=== PATIENT | female | born 1935 | race Caucasian/White ===

== ENCOUNTER 2017-01-20 17:22 | Inpatient (IN) | payer MEDICARE ==
[~2017-01-20] VITALS: Ht 147.3 cm; Wt 57.7 kg
[2017-01-20] VITALS (7 sets, daily range): BP systolic 133–171; BP diastolic 69–85; PULSE 101–127; RESP 18–24; TEMP 99.7–102.6; O2SAT 91–96
[2017-01-20] MEDS ORDERED: SODIUM CHLORID 0.9% 500 ML INJ 500 ML IV ONE ×2 (17:45→19:00)
[2017-01-20] MEDS ORDERED: ONDANSETRON HCL 4 MG/2 ML VIAL IV PUSH ONE (17:45)
[2017-01-20] MEDS ORDERED: ACETAMINOPHEN 325 MG TAB PO ONE (17:45)
--- NOTE | 2017-01-20 17:58 | PD ---
HPI Chief Complaint: Cold / Flu Symptoms Time Seen by Provider: 17:32 Travel History International Travel<30 days: No Contact w/Intl Traveler<30days: No Traveled to known affect area: No History of Present Illness HPI 81 y/o female presents with fever that started again this morning and has been steadily increasing. She has not taken anything for the fever. She recently at the beginning of last month was provided a doxycycline prescription which she completed and was given an additional prescription if it started again and so she took one pill of her doxycycline prescription this morning. She also recently in the past was given Levaquin and azithromycin when she was diagnosed at a different urgent care with pneumonia. She states this was earlier in December. She is here with someone helps provide history. Other than cough she denies other specific complaints to me. Fever is high. Severity is 102. PFSH Past Medical History Arthritis: Yes Asthma: Yes GERD: Yes Respiratory: Yes (ASTHMA) Influenza Vaccination: Yes ?: Not Menopausal: Yes Past Surgical History Surgical History: No Previous Surgery Social History Alcohol Use: No Tobacco Use: No Substance Use: No Allergies-Medications (Allergen,Severity, Reaction): Coded Allergies: No Known Allergies (Unverified , 01/20/17) Review of Systems Except as stated in HPI: all other systems reviewed are Neg Physical Exam Exam Limitations: Other: (fever) Narrative GENERAL: Well-nourished, well-developed patient. SKIN: Warm and dry. HEAD: Normocephalic and atraumatic. EYES: No injection or drainage. ENT: No nasal drainage noted. NECK: Supple, trachea midline. no meningeal signs CARDIOVASCULAR: Regular rate and rhythm RESPIRATORY: Breath sounds equal bilaterally at apices. No accessory muscle use. GASTROINTESTINAL: Abdomen soft, non-tender, nondistended. NEUROLOGICAL: Awake and alert. moves all extremities. Normal speech. Data Data Last Documented VS Vital Signs Date Time Temp Pulse Resp B/P Pulse Ox O2 Delivery O2 Flow Rate FiO2 01/20/17 18:16 101.7 109 18 171/85 96 Room Air Orders Electrocardiogram (01/20/17 17:32) Complete Blood Count With Diff (01/20/17 17:32) Comprehensive Metabolic Panel (01/20/17 17:32) Prothrombin Time / Inr (Pt) (01/20/17 17:32) Act Partial Throm Time (Ptt) (01/20/17 17:32) Lactic Acid Sepsis Protocol (01/20/17 17:32) Magnesium (Mg) (01/20/17 17:32) Phosphorus (Po4) (01/20/17 17:32) Urinalysis - C+S If Indicated (01/20/17 17:32) Influenzae A/B Antigen (01/20/17 17:32) Blood Culture (01/20/17 17:32) Chest, Single Ap (01/20/17 17:32) Ecg Monitoring (01/20/17 17:32) Iv Access Insert/Monitor (01/20/17 17:32) Oximetry (01/20/17 17:32) Acetaminophen (Tylenol) (01/20/17 17:45) Ondansetron Inj (Zofran Inj) (01/20/17 17:45) Sodium Chlorid 0.9% 500 Ml Inj (Ns 500 M (01/20/17 17:45) Ckmb (Isoenzyme) Profile (01/20/17 17:59) Troponin I (01/20/17 17:59) Vancomycin Inj (Vancomycin Inj) (01/20/17 18:39) Piperacil-Tazo 4.5 Gm Premix (Zosyn 4.5 (01/20/17 18:39) Sodium Chlor 0.9% 1000 Ml Inj (Ns 1000 M (01/20/17 18:45) Cath For Specimen (01/20/17 18:42) Admit Order (Ed Use Only) (01/20/17 18:52) Labs Laboratory Tests Test 01/20/17 17:59 White Blood Count 8.3 TH/MM3 Red Blood Count 3.94 MIL/MM3 Hemoglobin 12.6 GM/DL Hematocrit 36.9 % Mean Corpuscular Volume 93.6 FL Mean Corpuscular Hemoglobin 31.9 PG Mean Corpuscular Hemoglobin 34.1 % Concent Red Cell Distribution Width 16.1 % Platelet Count 163 TH/MM3 Mean Platelet Volume 8.8 FL Neutrophils (%) (Auto) 87.4 % Lymphocytes (%) (Auto) 6.6 % Monocytes (%) (Auto) 5.2 % Eosinophils (%) (Auto) 0.1 % Basophils (%) (Auto) 0.7 % Neutrophils # (Auto) 7.3 TH/MM3 Lymphocytes # (Auto) 0.5 TH/MM3 Monocytes # (Auto) 0.4 TH/MM3 Eosinophils # (Auto) 0.0 TH/MM3 Basophils # (Auto) 0.1 TH/MM3 CBC Comment DIFF FINAL Differential Comment Prothrombin Time 11.1 SEC Prothromb Time International 1.0 RATIO Ratio Activated Partial 25.4 SEC Thromboplast Time Sodium Level 140 MEQ/L Potassium Level 3.7 MEQ/L Chloride Level 109 MEQ/L Carbon Dioxide Level 22.3 MEQ/L Anion Gap 9 MEQ/L Blood Urea Nitrogen 11 MG/DL Creatinine 0.80 MG/DL Estimat Glomerular Filtration 69 ML/MIN Rate Random Glucose 128 MG/DL Lactic Acid Level 3.0 mmol/L Calcium Level 8.1 MG/DL Phosphorus Level 1.7 MG/DL Magnesium Level 2.0 MG/DL Total Bilirubin 0.9 MG/DL Aspartate Amino Transf 43 U/L (AST/SGOT) Alanine Aminotransferase 47 U/L (ALT/SGPT) Alkaline Phosphatase 83 U/L Total Creatine Kinase 36 U/L Troponin I LESS THAN 0.02 NG/ML Total Protein 6.2 GM/DL Albumin 3.5 GM/DL MDM Medical Decision Making Medical Screen Exam Complete: Yes Emergency Medical Condition: Yes Medical Record Reviewed: Yes (pmh confirmed) Interpretation(s) CBC & BMP Diagram 01/20/17 17:59 Last 24 hours Impressions Chest X-Ray 01/20/17 3492 Signed Impressions: Service Date/Time: Friday, January 20, 2017 17:49 - CONCLUSION: No acute cardiopulmonary disease identified. Bony Lindo MD Differential Diagnosis uri, uti, pneumonia, sepsis.... Narrative Course will check labs, flu, cxr, ua and dose with tylenol, ivf and reeval ed workup with severe sepsis, given vancomycin and zosyn for broad coverage, given ivf, will admit, patient updated Sepsis Criteria SIRS Criteria (2 or more): Temp > 100.9 or < 96.8, Heart rate over 90 Sepsis Criteria (SIRS+source): Infect source susp/known Severe Sepsis (+one): Lactate >2 Criteria Outcome: Meets severe sepsis criteria Physician Communication Physician Communication dr ga agrees to admit on floor, full admit with tele Diagnosis Primary Impression: Sepsis Qualified Code: A41.9 - Sepsis, due to unspecified organism Admitting Information Admitting Physician Requests: Admit Melissa Hanna MD Jan 20, 2017 17:58
--- NOTE | 2017-01-20 18:09 | RADHPO ---
EXAM DATE/TIME: 01/20/2017 17:49 [place] COMPARISON: No previous studies available for comparison. INDICATIONS : Cough. MEDICAL HISTORY : None. SURGICAL HISTORY : None. ENCOUNTER: Initial ACUITY: 1 month PAIN SCORE: 3/10 LOCATION: Bilateral chest FINDINGS: Single AP view of the chest. The lungs are clear. Cardiomediastinal silhouette within normal limits. No evidence of pleural effusion or pneumothorax. CONCLUSION: No acute cardiopulmonary disease identified. Bony Lindo MD on January 20, 2017 at 18:07 Board Certified Radiologist. This report was verified electronically.
[2017-01-20 18:25] LABS: AUTOMATED NEUTROPHIL # 7.3 TH/MM3 (1.8-7.7); BASOPHIL # 0.1 TH/MM3 (0-0.2); BASOPHIL % 0.7 % (0.0-2.0); EOSINOPHIL % 0.1 % (0.0-4.0); HEMATOCRIT 36.9 % (35.0-46.0); LYMPH % 6.6 % (9.0-44.0); LYMPHOCYTE # 0.5 TH/MM3 (1.0-4.8); MEAN CELL VOLUME 93.6 FL (80.0-100.0); MEAN CORPUSCULAR HEMOGLOBIN 31.9 PG (27.0-34.0); MEAN CORPUSCULAR HGB CONC 34.1 % (32.0-36.0); MONO % 5.2 % (0.0-8.0); NEUT % 87.4 % (16.0-70.0); PLATELET COUNT 163 TH/MM3 (150-450); RED BLOOD COUNT 3.94 MIL/MM3 (4.00-5.30); RED CELL DISTRIBUTION WIDTH 16.1 % (11.6-17.2); WHITE BLOOD COUNT 8.3 TH/MM3 (4.0-11.0)
[2017-01-20 18:27] LABS: HEMO FLAGS DIFF FINAL
[2017-01-20 18:28] LABS: CHLORIDE 109 MEQ/L (98-107); POTASSIUM 3.7 MEQ/L (3.5-5.1); SODIUM (NA) 140 MEQ/L (136-145)
[2017-01-20 18:32] LABS: ANION GAP 9 MEQ/L (5-15); BICARBONATE 22.3 MEQ/L (21.0-32.0); BLOOD UREA NITROGEN 11 MG/DL (7-18)
[2017-01-20 18:34] LABS: APTT (PATIENT) 25.4 SEC (24.3-30.1); PROTHROMBIN TIME - PATIENT 11.1 SEC (9.8-11.6)
[2017-01-20 18:35] LABS: ALT (GPT) 47 U/L (10-53); AST (GOT) 43 U/L (15-37); GLOMERULAR FILTRATION RATE 69 ML/MIN (>89)
[2017-01-20 18:37] LABS: TOTAL BILIRUBIN ADULT 0.9 MG/DL (0.2-1.0)
[2017-01-20 18:38] LABS: ALKALINE PHOSPHATASE 83 U/L (45-117)
[2017-01-20] MEDS ORDERED: PIPERACIL-TAZO 4.5 GM PREMIX 100 ML IV STA (18:39)
[2017-01-20] MEDS ORDERED: VANCOMYCIN INJ 1,000 MG in SODIUM CHLOR 0.9% 250 ML INJ 250 ML IV STA (18:39)
[2017-01-20 18:43] LABS: CREATINE KINASE 36 U/L (26-192)
[2017-01-20] MEDS ORDERED: SODIUM CHLOR 0.9% 1000 ML INJ 1,000 ML IV ONE (18:45)
[2017-01-20] MEDS ORDERED: ACETAMINOPHEN 325 MG TAB PO PRN (19:00)
[2017-01-20] MEDS ORDERED: ONDANSETRON HCL 4 MG/2 ML VIAL IV PUSH PRN (19:00)
[2017-01-20] MEDS ORDERED: Vancomycin Consult Pharmacy 1 EA OTHER SCH (19:00)
[2017-01-20 19:15] LABS: BLOOD, URINE NEG (NEG); GLUCOSE,URINE NEG (NEG); KETONE, URINE NEG (NEG); NITRITE,URINE NEG (NEG)
[2017-01-20 19:22] LABS: URINE COLOR YELLOW (YELLW/STRAW)
[2017-01-20 19:24] LABS: COMMENT (UR) CATH-CULT NOT IND; CULTURE IF INDICATED CATH CULTURE NOT IND; RBC, URINE 0-3 /hpf (0-3); SQUAMOUS EPITHELIAL CELL URINE 0-5 /hpf (0-5)
[2017-01-20 20:15] LABS: LACTIC ACID GHOST NOT REPORTABLE
[2017-01-20] MEDS: RESP: ALBUTEROL 1.25 MG/3 ML NEB (PRN) NEB (22:40)
[2017-01-21] VITALS (7 sets, daily range): BP systolic 113–142; BP diastolic 58–79; PULSE 81–101; RESP 16–20; TEMP 97.9–99.7; O2SAT 92–95
[2017-01-21] MEDS: POTASSIUM PHOSPHATE/SODIUM PHOSPHATE 250 MG TAB PO SCH ×4 (00:23→21:40)
[2017-01-21] MEDS ORDERED: ACETAMINOPHEN/HYDROcodone 325 MG/10 MG TAB PO PRN (01:00)
[2017-01-21] MEDS ORDERED: PANTOPRAZOLE SOD 40 MG DELAYED RELEASE TAB PO ONE (01:00)
[2017-01-21] MEDS ORDERED: guaiFENesin/DEXTROMETHORPHAN 200 MG/20 MG/10 ML CUP PO PRN (01:00)
[2017-01-21] MEDS ORDERED: ACETAMINOPHEN/HYDROcodone 325 MG/5 MG TAB PO PRN (01:00)
[2017-01-21] MEDS: RESP: ALBUTEROL 1.25 MG/3 ML NEB (PRN) NEB ×4 (01:25→20:20)
[2017-01-21] MEDS: PIPERACIL-TAZO 3.375 GM PREMIX 50 ML IV SCH ×3 (06:50→17:39)
[2017-01-21 08:24] LABS: AUTOMATED NEUTROPHIL # 4.7 TH/MM3 (1.8-7.7); BASOPHIL # 0.1 TH/MM3 (0-0.2); BASOPHIL % 1.2 % (0.0-2.0); EOSINOPHIL % 0.7 % (0.0-4.0); HEMATOCRIT 33.9 % (35.0-46.0); HEMO FLAGS DIFF FINAL; LYMPHOCYTE # 0.7 TH/MM3 (1.0-4.8); MEAN CELL VOLUME 94.2 FL (80.0-100.0); MEAN CORPUSCULAR HEMOGLOBIN 30.7 PG (27.0-34.0); MEAN CORPUSCULAR HGB CONC 32.6 % (32.0-36.0); MONO % 13.2 % (0.0-8.0); NEUT % 73.9 % (16.0-70.0); PLATELET COUNT 134 TH/MM3 (150-450); RED CELL DISTRIBUTION WIDTH 16.3 % (11.6-17.2); WHITE BLOOD COUNT 6.3 TH/MM3 (4.0-11.0)
--- NOTE | 2017-01-21 08:26 | HHI.HP ---
[facility] Service [facility] Hospitalists Primary Care Physician Non-Staff Admission Diagnosis sepsis Diagnoses: (1) Sepsis Diagnosis: Principal (2) Pneumonia Diagnosis: Principal Chief Complaint: cough Travel History International Travel<30 Days: No Contact w/Intl Traveler <30 Da: No Traveled to Known Affected Are: No History of Present Illness patient is a 81 y/o female with history of asthma and RA who presented to ER with cough. she says that her cough started in November. cough is productive of whitish sputum.she denies any fever but had some night sweats.she says that she had one course of Z-jimenez with no significant improvement. she says that she used her inhalers at home with some relief. she says that she had one more dose of z- jimenez before coming to ER but she threw up. currently she's feeling better although still with some cough. Review of Systems Constitutional: COMPLAINS OF: Night Sweats, DENIES: Fever, Weight loss, Chills Eyes: DENIES: Blurred vision, Diplopia, Vision loss, Double Vision Ears, nose, mouth, throat: DENIES: Tinnitus, Vertigo, Throat pain, Epistaxis Respiratory: COMPLAINS OF: Cough, Sputum production, Shortness of breath, DENIES: Apneas, Snoring, Wheezing, Hemoptysis Cardiovascular: DENIES: Chest pain, Palpitations, Syncope, Dyspnea on Exertion , PND, Lower Extremity Edema, Orthopnea, Claudication Gastrointestinal: DENIES: Abdominal pain, Black stools, Bloody stools, Constipation, Diarrhea, Nausea, Vomiting, Difficulty Swallowing, Anorexia Genitourinary: DENIES: Urinary frequency, Urgency, Hematuria, Dysuria Musculoskeletal: DENIES: Joint pain, Muscle aches, Stiffness, Joint Swelling Integumentary: DENIES: Rash Neurologic: DENIES: Abnormal gait, Headache, Localized weakness, Paresthesias, Seizures, Speech Problems, Tremor, Poor Balance Psychiatric: DENIES: Anxiety, Confusion, Mood changes, Depression, Hallucinations, Agitation, Suicidal Ideation, Homicidal Ideation, Delusions Past Family Social History Past Medical History asthma RA Past Surgical History hysterectomy Reported Medications inhalers as needed. Allergies: Coded Allergies: No Known Allergies (Unverified , 01/20/17) Active Ordered Medications Current Medications Acetaminophen (Tylenol) 650 mg ONCE ONCE PO Last administered on 01/20/17 18: 14; Start 01/20/17 at 17:45; Stop 01/20/17 at 17:46; Status DC Ondansetron HCl 4 mg 4 mg ONCE ONCE IV PUSH Last administered on 01/20/17 18: 12; Start 01/20/17 at 17:45; Stop 01/20/17 at 17:46; Status DC Sodium Chloride 500 ml @ 500 mls/hr BOLUS ONCE IV Last administered on 18:11; Start 01/20/17 at 17:45; Stop 01/20/17 at 18:44; Status DC Vancomycin HCl 1000 mg/Sodium Chloride 250 ml @ 250 mls/hr ONCE STAT IV Last administered on 01/20/17 19:39; Start 01/20/17 at 18:39; Stop 01/20/17 at 19:38; Status DC Piperacillin Sod/ Tazobactam Sod 100 ml @ 200 mls/hr ONCE STAT IV Last administered on 01/20/17 19:00; Start 01/20/17 at 18:39; Stop 01/20/17 at 19:08; Status DC Sodium Chloride 1,000 ml @ 999 mls/hr BOLUS ONCE IV Last administered on 19:00; Start 01/20/17 at 18:45; Stop 01/20/17 at 19:45; Status DC Pharmacy Profile Note 0 ml @ 0 mls/hr UNSCH OTHER ; Start 01/20/17 at 19:00 Piperacillin Sod/ Tazobactam Sod (Zosyn 3.375 Gm Premix) 50 ml @ 100 mls/hr Q8H IV Last administered on 01/21/17 06:50; Start 01/21/17 at 03:00 Acetaminophen (Tylenol) 650 mg Q4H PRN PO FEVER/PAIN/HEADACHE; Start 01/20/17 at 19:00 Ondansetron HCl 4 mg 4 mg Q8HR PRN IV PUSH NAUSEA; Start 01/20/17 at 19:00 Sodium Chloride (NS 500 ml Inj) 500 ml @ 50 mls/hr Q10H ONCE IV Last administered on 01/20/17 19:40; Start 01/20/17 at 19:00; Stop 01/21/17 at 04:59; Status DC Potassium Phos/ Sodium Phos (K-Phos Neutral) 250 mg Q8HR PO Last administered on 01/21/17 06:50; Start 01/20/17 at 22:00 Albuterol Sulfate 1.25 mg 1.25 mg Q2HR NEB PRN NEB SHORTNESS OF BREATH Last administered on 01/21/17 07:23; Start 01/20/17 at 19:00 Vancomycin HCl/ Sodium Chloride (Vancomycin Inj/ NS 250 ml Inj) 258 ml @ 250 mls/hr Q18H IV ; Start 01/21/17 at 14:00 Miscellaneous Information SPECIFIC LAB TO BE ... ONCE ONCE .XX ; Start at 01:45; Stop 01/23/17 at 01:46 Pantoprazole Sodium (Protonix) 40 mg Q12HR PO ; Start 01/21/17 at 21:00 Pantoprazole Sodium (Protonix) 40 mg ONCE ONCE PO Last administered on 01:15; Start 01/21/17 at 01:00; Stop 01/21/17 at 01:01; Status DC Acetaminophen/ Hydrocodone Bitart ([place] 5-325 Mg) 1 tab Q4H PRN PO PAIN 1-5; Start 01/21/17 at 01:00 Acetaminophen/ Hydrocodone Bitart ([place] 10-325 Mg) 1 tab Q4H PRN PO PAIN 6-10 Last administered on 01/21/17 01:16; Start 01/21/17 at 01:00 Guaifenesin/ Dextromethorphan (Robitussin Dm 200-20 Mg/10 ml Liq) 10 ml Q4H PRN PO COUGH Last administered on 01/21/17 01:16; Start 01/21/17 at 01:00 Family History ovarian cancer in mother. Social History no smoking or drinking. Physical Exam Vital Signs Vital Signs Date Time Temp Pulse Resp B/P Pulse Ox O2 Delivery O2 Flow Rate FiO2 01/21/17 07:25 92 21 01/21/17 00:07 99.6 101 18 129/58 93 01/20/17 21:30 96 21 01/20/17 21:11 99.7 103 18 151/76 91 01/20/17 21:11 99.7 103 18 151/76 91 01/20/17 20:10 99.9 101 18 133/69 95 Room Air 01/20/17 19:10 114 18 140/77 95 Room Air 01/20/17 19:10 114 18 Room Air 01/20/17 18:16 101.7 109 18 171/85 96 Room Air 01/20/17 18:14 96 Room Air 01/20/17 17:44 Room Air 01/20/17 17:28 102.6 127 24 170/81 94 Physical Exam GENERAL: This is a well-nourished, well-developed patient, in no apparent distress. SKIN: No rashes, ecchymoses or lesions. Cool and dry. HEAD: Atraumatic. Normocephalic. No temporal or scalp tenderness. EYES: Pupils equal round and reactive. Extraocular motions intact. No scleral icterus. No injection or drainage. ENT: Nose without bleeding, purulent drainage or septal hematoma. Throat without erythema, tonsillar hypertrophy or exudate. Uvula midline. Airway patent. NECK: Trachea midline. No JVD or lymphadenopathy. Supple, nontender, no meningeal signs. CARDIOVASCULAR: Regular rate and rhythm without murmurs, gallops, or rubs. RESPIRATORY: mild wheezing and rhonchi bilaterally. GASTROINTESTINAL: Abdomen soft, non-tender, nondistended. No hepato-splenomegaly , or palpable masses. No guarding. MUSCULOSKELETAL: Extremities without clubbing, cyanosis, or edema. No joint tenderness, effusion, or edema noted. No calf tenderness. Negative Homans sign bilaterally. NEUROLOGICAL: Awake and alert. Cranial nerves II through XII intact. Motor and sensory grossly within normal limits. Five out of 5 muscle strength in all muscle groups. Normal speech. Laboratory Laboratory Tests Test 01/20/17 01/20/17 01/20/17 17:59 18:50 20:40 White Blood Count 8.3 Red Blood Count 3.94 Hemoglobin 12.6 Hematocrit 36.9 Mean Corpuscular Volume 93.6 Mean Corpuscular Hemoglobin 31.9 Mean Corpuscular Hemoglobin 34.1 Concent Red Cell Distribution Width 16.1 Platelet Count 163 Mean Platelet Volume 8.8 Neutrophils (%) (Auto) 87.4 Lymphocytes (%) (Auto) 6.6 Monocytes (%) (Auto) 5.2 Eosinophils (%) (Auto) 0.1 Basophils (%) (Auto) 0.7 Neutrophils # (Auto) 7.3 Lymphocytes # (Auto) 0.5 Monocytes # (Auto) 0.4 Eosinophils # (Auto) 0.0 Basophils # (Auto) 0.1 CBC Comment DIFF FINAL Differential Comment Prothrombin Time 11.1 Prothromb Time International 1.0 Ratio Activated Partial 25.4 Thromboplast Time Sodium Level 140 Potassium Level 3.7 Chloride Level 109 Carbon Dioxide Level 22.3 Anion Gap 9 Blood Urea Nitrogen 11 Creatinine 0.80 Estimat Glomerular Filtration 69 Rate Random Glucose 128 Lactic Acid Level 3.0 1.3 Calcium Level 8.1 Phosphorus Level 1.7 Magnesium Level 2.0 Total Bilirubin 0.9 Aspartate Amino Transf 43 (AST/SGOT) Alanine Aminotransferase 47 (ALT/SGPT) Alkaline Phosphatase 83 Total Creatine Kinase 36 Troponin I LESS THAN 0.02 Total Protein 6.2 Albumin 3.5 Urine Color YELLOW Urine Turbidity CLEAR Urine pH 6.0 Urine Specific [place] 1.017 Urine Protein NEG Urine Glucose (UA) NEG Urine Ketones NEG Urine Occult Blood NEG Urine Nitrite NEG Urine Bilirubin NEG Urine Leukocyte Esterase NEG Urine RBC 0-3 Urine Squamous Epithelial 0-5 Cells Microscopic Urinalysis Comment CATH-CULT NOT IND Date/Time Procedure Status Source Growth 01/20/17 18:04 Aerobic Blood Culture Received Blood Peripheral Pending 01/20/17 18:04 Anaerobic Blood Culture Received Blood Peripheral Pending 01/20/17 17:59 Influenza Types A,B Antigen (CYN) - Final Complete Nasal Aspirate NEGATIVE FOR FLU A AND B ANTIGEN.... Result Diagram: 01/20/17 1759 01/20/17 175 Imaging Last Impressions Chest X-Ray 01/20/17 1732 Signed Impressions: Service Date/Time: Friday, January 20, 2017 17:49 - CONCLUSION: No acute cardiopulmonary disease identified. Bony Lindo MD EKG; sinus tachycardia Assessment and Plan Assessment and Plan A/P - sepsis due to possible pneumonia continue with broad spectrum IV antibiotics- follow the cultures. continue with neb treatment- -asthma exacerbation start on low dose IV steroids- continue neb treatment -hypophosphatemia; will replace -DVT prophylaxis with lovenox Discussed Condition With ER physician and the patient. Physician Certification 2 Midnight Certification Type: Admission for Inpatient Services Order for Inpatient Services The services are ordered in accordance with Medicare regulations or non- Medicare payer requirements, as applicable. In the case of services not specified as inpatient-only, they are appropriately provided as inpatient services in accordance with the 2-midnight benchmark. Estimated LOS (days): 2 days is the estimated time the patient will need to remain in the hospital, assuming treatment plan goals are met and no additional complications. Post-Hospital Plan: Home Problem Qualifiers (1) Sepsis: Qualified Code: A41.9 - Sepsis, due to unspecified organism (2) Pneumonia: Ophelia Matamoros MD Jan 21, 2017 08:26
[2017-01-21 08:33] LABS: BICARBONATE 20.1 MEQ/L (21.0-32.0)
[2017-01-21] MEDS ORDERED: ENOXAPARIN SODIUM 40 MG/0.4 ML SYRINGE SQ SCH (09:00)
[2017-01-21] MEDS: methylPREDNISolone SOD SUCC 40 MG/1 ML VIAL IV PUSH SCH ×2 (09:23→21:40)
[2017-01-21] MEDS ORDERED: POTASSIUM CHLORIDE 20 MEQ CONTROLLED RELEASE TAB PO ONE ×2 (14:00→17:00)
[2017-01-21] MEDS ORDERED: VANCOMYCIN INJ 800 MG in SODIUM CHLOR 0.9% 250 ML INJ 250 ML IV SCH (14:00)
--- NOTE | 2017-01-21 14:36 | EKG ---
Date Performed: 01/20/2017 Time Performed: 17:35:40 PTAGE: 81 years EKG: Sinus tachycardia ST junctional depression is nonspecific Borderline ECG NO PREVIOUS TRACING DOCTOR: Marquise Fuentes Interpretating Date/Time 01/21/2017 14:35:20
[2017-01-21] MEDS ORDERED: PANTOPRAZOLE SOD 40 MG DELAYED RELEASE TAB PO SCH (21:00)
[2017-01-22 00:33] VITALS: BP 127/70; PULSE 78; RESP 16; TEMP 98.6; O2SAT 91
[2017-01-22] MEDS: PIPERACIL-TAZO 3.375 GM PREMIX 50 ML IV SCH (02:14)
[2017-01-22] MEDS: POTASSIUM PHOSPHATE/SODIUM PHOSPHATE 250 MG TAB PO SCH (05:38)
[2017-01-22] MEDS: RESP: ALBUTEROL 1.25 MG/3 ML NEB (PRN) NEB (07:30)
[2017-01-22 07:31] VITALS: O2SAT 95
[2017-01-22 08:00] VITALS: BP 128/72; PULSE 79; RESP 21; TEMP 97; O2SAT 93
[2017-01-22 08:11] LABS: BICARBONATE 20.5 MEQ/L (21.0-32.0); POTASSIUM 3.9 MEQ/L (3.5-5.1)
--- NOTE | 2017-01-22 08:31 | HHI.PR ---
Subjective Remarks has much improved. remains afebrile. now off oxygen and walks in the room with no sob. cough and sob has much improved. wants to go home today. Objective Vitals Vital Signs Date Time Temp Pulse Resp B/P Pulse Ox O2 Delivery O2 Flow Rate FiO2 01/22/17 07:31 95 21 01/22/17 00:33 98.6 78 16 127/70 91 01/21/17 21:25 99.4 81 16 141/79 94 01/21/17 20:20 95 21 01/21/17 16:00 97.9 87 20 142/71 95 01/21/17 12:00 98.8 88 20 142/70 92 I/O 01/21/17 01/21/17 01/21/17 01/22/17 01/22/17 01/22/17 07:00 15:00 23:00 07:00 15:00 23:00 Intake Total 1000 ml Balance 1000 ml Intake Oral 1000 ml # Voids 2 5 1 1 # Bowel Movements 0 Result Diagram: 01/21/17 0757 01/22/17 0655 Imaging Last Impressions Chest X-Ray 01/20/17 1732 Signed Impressions: Service Date/Time: Friday, January 20, 2017 17:49 - CONCLUSION: No acute cardiopulmonary disease identified. Bony Lindo MD Objective Remarks GENERAL: This is a well-nourished, well-developed patient, in no apparent distress. CARDIOVASCULAR: Regular rate and regular rhythm without murmurs, gallops, or rubs. RESPIRATORY: Clear to auscultation. Breath sounds equal bilaterally. No wheezes , rales, or rhonchi. GASTROINTESTINAL: Abdomen soft, non-tender, nondistended. Normal, active bowel sounds MUSCULOSKELETAL: Extremities without clubbing, cyanosis, or edema. NEURO: Alert & Oriented x4 to person, place, time, situation. Moves all ext x4 Procedures none Medications and IVs Current Medications Acetaminophen (Tylenol) 650 mg ONCE ONCE PO Last administered on 01/20/17 18: 14; Start 01/20/17 at 17:45; Stop 01/20/17 at 17:46; Status DC Ondansetron HCl 4 mg 4 mg ONCE ONCE IV PUSH Last administered on 01/20/17 18: 12; Start 01/20/17 at 17:45; Stop 01/20/17 at 17:46; Status DC Sodium Chloride 500 ml @ 500 mls/hr BOLUS ONCE IV Last administered on 18:11; Start 01/20/17 at 17:45; Stop 01/20/17 at 18:44; Status DC Vancomycin HCl 1000 mg/Sodium Chloride 250 ml @ 250 mls/hr ONCE STAT IV Last administered on 01/20/17 19:39; Start 01/20/17 at 18:39; Stop 01/20/17 at 19:38; Status DC Piperacillin Sod/ Tazobactam Sod 100 ml @ 200 mls/hr ONCE STAT IV Last administered on 01/20/17 19:00; Start 01/20/17 at 18:39; Stop 01/20/17 at 19:08; Status DC Sodium Chloride 1,000 ml @ 999 mls/hr BOLUS ONCE IV Last administered on 19:00; Start 01/20/17 at 18:45; Stop 01/20/17 at 19:45; Status DC Pharmacy Profile Note 0 ml @ 0 mls/hr UNSCH OTHER ; Start 01/20/17 at 19:00 Piperacillin Sod/ Tazobactam Sod (Zosyn 3.375 Gm Premix) 50 ml @ 100 mls/hr Q8H IV Last administered on 01/22/17 02:14; Start 01/21/17 at 03:00 Acetaminophen (Tylenol) 650 mg Q4H PRN PO FEVER/PAIN/HEADACHE Last administered on 01/21/17 21:40; Start 01/20/17 at 19:00 Ondansetron HCl 4 mg 4 mg Q8HR PRN IV PUSH NAUSEA; Start 01/20/17 at 19:00 Sodium Chloride (NS 500 ml Inj) 500 ml @ 50 mls/hr Q10H ONCE IV Last administered on 01/20/17 19:40; Start 01/20/17 at 19:00; Stop 01/21/17 at 04:59; Status DC Potassium Phos/ Sodium Phos (K-Phos Neutral) 250 mg Q8HR PO Last administered on 01/22/17 05:38; Start 01/20/17 at 22:00 Albuterol Sulfate 1.25 mg 1.25 mg Q2HR NEB PRN NEB SHORTNESS OF BREATH Last administered on 01/22/17 07:30; Start 01/20/17 at 19:00 Vancomycin HCl/ Sodium Chloride (Vancomycin Inj/ NS 250 ml Inj) 258 ml @ 250 mls/hr Q18H IV Last administered on 01/21/17 14:54; Start 01/21/17 at 14:00 Miscellaneous Information SPECIFIC LAB TO BE WILI... ONCE ONCE .XX ; Start at 01:45; Stop 01/23/17 at 01:46 Pantoprazole Sodium (Protonix) 40 mg Q12HR PO Last administered on 01/21/17 21: 40; Start 01/21/17 at 21:00 Pantoprazole Sodium (Protonix) 40 mg ONCE ONCE PO Last administered on 01:15; Start 01/21/17 at 01:00; Stop 01/21/17 at 01:01; Status DC Acetaminophen/ Hydrocodone Bitart ([place] 5-325 Mg) 1 tab Q4H PRN PO PAIN 1-5; Start 01/21/17 at 01:00 Acetaminophen/ Hydrocodone Bitart ([place] 10-325 Mg) 1 tab Q4H PRN PO PAIN 6-10 Last administered on 01/21/17 01:16; Start 01/21/17 at 01:00 Guaifenesin/ Dextromethorphan (Robitussin Dm 200-20 Mg/10 ml Liq) 10 ml Q4H PRN PO COUGH Last administered on 01/21/17 01:16; Start 01/21/17 at 01:00 Methylprednisolone Sodium Succinate (SoluMEDROL INJ) 40 mg Q12HR IV PUSH Last administered on 01/21/17 21:40; Start 01/21/17 at 09:00 Enoxaparin Sodium (Lovenox Inj) 40 mg Q24H SQ Last administered on 01/21/17 09: 23; Start 01/21/17 at 09:00 Potassium Chloride (KCl) 40 meq ONCE ONCE PO Last administered on 01/21/17 14: 54; Start 01/21/17 at 14:00; Stop 01/21/17 at 14:01; Status DC Potassium Chloride (KCl) 40 meq ONCE ONCE PO Last administered on 01/21/17 17: 39; Start 01/21/17 at 17:00; Stop 01/21/17 at 17:01; Status DC A/P Assessment and Plan A/P - sepsis due to possible pneumonia - improved blood cultures negative- will switch to po antibiotics. -asthma exacerbation- improved switch to po prednisone. -hypophosphatemia; replaced. hypokalemia; replaced -DVT prophylaxis with lovenox Discharge Planning dc home today with f/u with pcp. see med list. d/w the patient. Ophelia Matamoros MD Jan 22, 2017 08:31
[2017-01-22] MEDS ORDERED: CEFT250S PO (08:39)
[2017-01-22] MEDS ORDERED: ZITH250T PO (08:39)
[2017-01-22] MEDS ORDERED: PRED5TAB PO (08:39)
--- NOTE | 2017-01-22 08:39 | HHI.DCPOC ---
Discharge Care Plan Diagnosis: (1) Sepsis (2) Pneumonia Your Health Problems Are: Cough Shortness of Breath Goals to Promote Your Health * To prevent worsening of your condition and complications * To maintain your health at the optimal level Directions to Meet Your Goals Take your medications as prescribed Follow your dietary instruction Follow activity as directed Keep your appointments as scheduled Take your immunizations and boosters as scheduled If your symptoms worsen call your PCP, if no PCP go to Urgent Care Center or Emergency Room Smoking is Dangerous to Your Health. Avoid second hand smoke Call the 24-hour hour crisis hotline for domestic abuse at Ophelia Matamoros MD Jan 22, 2017 08:39
--- NOTE | 2017-01-22 08:40 | HHI.DS ---
Discharge Summary Admission Date Jan 20, 2017 at 18:53 Discharge Date: Jan 22, 2017 Admitting Diagnosis sepsis (1) Sepsis ICD Code: A41.9 Diagnosis: Principal (2) Pneumonia ICD Code: J18.9 Diagnosis: Principal Procedures none Brief History - From Admission patient is a 81 y/o female with history of asthma and RA who presented to ER with cough. she says that her cough started in November. cough is productive of whitish sputum.she denies any fever but had some night sweats.she says that she had one course of Z-jimenez with no significant improvement. she says that she used her inhalers at home with some relief. she says that she had one more dose of z- jimenez before coming to ER but she threw up. currently she's feeling better although still with some cough. CBC/BMP: 01/21/17 0757 01/22/17 0655 Significant Findings Laboratory Tests Test 01/20/17 01/21/17 01/22/17 17:59 07:57 06:55 Red Blood Count 3.94 MIL/MM3 3.60 MIL/MM3 (4.00-5.30) (4.00-5.30) Neutrophils (%) (Auto) 87.4 % 73.9 % (16.0-70.0) (16.0-70.0) Lymphocytes (%) (Auto) 6.6 % (9.0-44.0) Lymphocytes # (Auto) 0.5 TH/MM3 0.7 TH/MM3 (1.0-4.8) (1.0-4.8) Chloride Level 109 MEQ/L 115 MEQ/L 113 MEQ/L (98-107) (98-107) (98-107) Estimat Glomerular Filtration 69 ML/MIN (>89) Rate Random Glucose 128 MG/DL 118 MG/DL 141 MG/DL (74-106) (74-106) (74-106) Lactic Acid Level 3.0 mmol/L (0.4-2.0) Calcium Level 8.1 MG/DL 7.5 MG/DL 7.6 MG/DL (8.5-10.1) (8.5-10.1) (8.5-10.1) Phosphorus Level 1.7 MG/DL 2.3 MG/DL (2.5-4.9) (2.5-4.9) Aspartate Amino Transf 43 U/L (15-37) (AST/SGOT) Troponin I LESS THAN 0.02 NG/ML (0.02-0.05) Total Protein 6.2 GM/DL (6.4-8.2) Hemoglobin 11.1 GM/DL (11.6-15.3) Hematocrit 33.9 % (35.0-46.0) Platelet Count 134 TH/MM3 (150-450) Monocytes (%) (Auto) 13.2 % (0.0-8.0) Potassium Level 3.0 MEQ/L (3.5-5.1) Carbon Dioxide Level 20.1 MEQ/L 20.5 MEQ/L (21.0-32.0) (21.0-32.0) Imaging Last Impressions Chest X-Ray 01/20/17 0342 Signed Impressions: Service Date/Time: Friday, January 20, 2017 17:49 - CONCLUSION: No acute cardiopulmonary disease identified. Bony Lindo MD PE at Discharge GENERAL: This is a well-nourished, well-developed patient, in no apparent distress. CARDIOVASCULAR: Regular rate and regular rhythm without murmurs, gallops, or rubs. RESPIRATORY: Clear to auscultation. Breath sounds equal bilaterally. No wheezes , rales, or rhonchi. GASTROINTESTINAL: Abdomen soft, non-tender, nondistended. Normal, active bowel sounds MUSCULOSKELETAL: Extremities without clubbing, cyanosis, or edema. NEURO: Alert & Oriented x4 to person, place, time, situation. Moves all ext x4 Hospital Course - sepsis due to possible pneumonia - improved blood cultures negative- will switch to po antibiotics. -asthma exacerbation- improved switch to po prednisone. -hypophosphatemia; replaced. hypokalemia; replaced -DVT prophylaxis with lovenox Pt Condition on Discharge: Good Discharge Disposition: Discharge Home Discharge Time: <= 30 minutes Discharge Instructions DIET: Follow Instructions for: Heart Healthy Diet Activities you can perform: Regular-No Restrictions Follow up Referrals: PCP Follow-up New Medications: Albuterol 18 GM Inh (Ventolin Hfa 18 GM Inh) 90 Mcg/Act Aer 2 PUFF INH Q6H PRN SHORTNESS OF BREATH #1 Ref 0 INHALER Azithromycin (Zithromax) 250 Mg Tab 250 MG PO DIRECTED 500 mg po daily on day one then 250 mg po daily for four days. Infection #6 Ref 0 TAB Cefuroxime Liq (Ceftin Liq) 250 Mg/5 Ml Susp 500 MG PO BID Infection Days 5 Ref 0 ML Prednisone (Prednisone) 5 Mg Tab 5 MG PO DIRECTED 40 mg po daily for two days then 30 mg po daily for two days then 20 mg po daily for two days then 10 mg po daily for two days then 5 mg po daily for two days then stop. Shortness of Breath Days 10 Ref 0 TAB Ophelia Matamoros MD Jan 22, 2017 08:40
[2017-01-22] MEDS ORDERED: VENTAER INH (08:49)
[2017-01-23] MEDS ORDERED: PHARMACY ORDERED LAB ONE (01:45)
== END 2017-01-22 09:12 | disposition home or self-care (01) | DRG 871 ==
LOC: PHED 17:22 → PHEDA 18:53 → PH3B 20:55
PROVIDERS: ADMIT Internal Medicine; ATTEND Internal Medicine
DX: A41.9 Sepsis, unspecified organism (principal); J18.9 Pneumonia, unspecified organism; J45.901 Unspecified asthma with (acute) exacerbation; E83.39 Other disorders of phosphorus metabolism; K21.9 Gastro-esophageal reflux disease without esophagitis; M19.90 Unspecified osteoarthritis, unspecified site; E87.6 Hypokalemia
CPT/HCPCS: 71010; 80048; 80053; 81001; 82550; 83605; 83735; 84100; 84484; 85025; 85610; 85730; 87040; 87804; 93005; 94640; 94664; 96361; 96374; J1650; J2405; J2543; J2920; J3370; J7030; J7040; J7050; J7613